=== PATIENT | male | born 1990 | race Caucasian/White ===

== ENCOUNTER 2017-05-18 12:36 | Emergency (ER) | payer BC, OTHER ==
[2017-05-18] MEDS ORDERED: XYLOCAINE 1% HCL 20 ML MDV IJ ONE (13:08)
[2017-05-18] MEDS ORDERED: BACIGUENT PACKET TP ONE (13:08)
--- NOTE | 2017-05-18 13:08 | ERPHSYRPT ---
- History of Present Illness Time Seen by Provider: 05/18/17 13:00 Source: patient Exam Limitations: no limitations Patient Subjective Stated Complaint: pt states he was trying to get a door undone and door struck the right side of his face. pt c/o laceration to right side face. Triage Nursing Assessment: pt pink, warm, dry. 4cm laceration to right face. bleeding controlled. Physician History: 26-year-old white male arrives with complaint of laceration on right side of face overlying zygoma and just prior to arrival. Patient states he lacerated his face on the sharp part of the door he was trying to open he denies any loss of consciousness denies any other problems. Past medical history negative. Past surgical history tonsils and adenoidectomy. Patient states his tetanus is up-to-date he believes he got a tetanus shot a year ago Timing/Duration: today Severity: mild Modifying Factors: Improves With: nothing Associated Symptoms: other (4 cm laceration face), No nausea, No vomiting, No abdominal pain, No shortness of breath, No heartburn, No diaphoresis, No cough, No chills, No chest pain, No fever, No headaches, No loss of appetite, No malaise, No rash, No syncope, No seizure, No weakness Allergies/Adverse Reactions: No Known Drug Allergies Allergy (Unverified 05/18/17 12:55) Hx Tetanus, Diphtheria Vaccination/Date Given: Yes (up to date) Hx Influenza Vaccination/Date Given: No Hx Pneumococcal Vaccination/Date Given: No Immunizations Up to Date: Yes - Review of Systems Constitutional: No Fever, No Chills Eyes: No Symptoms Ears, Nose, & Throat: No Symptoms Respiratory: No Cough, No Dyspnea Cardiac: No Chest Pain, No Edema, No Syncope Abdominal/Gastrointestinal: No Abdominal Pain, No Nausea, No Vomiting, No Diarrhea Genitourinary Symptoms: No Dysuria Musculoskeletal: No Back Pain, No Neck Pain Skin: Other (4 cm laceration to the face) Neurological: No Dizziness, No Focal Weakness, No Sensory Changes Psychological: No Symptoms Endocrine: No Symptoms All Other Systems: Reviewed and Negative - Past Medical History Pertinent Past Medical History: No - Past Surgical History Past Surgical History: Yes Other Surgical History: t & a - Social History Smoking Status: Light tobacco smoker Exposure to second hand smoke: Yes Drug Use: none Patient Lives Alone: No - Nursing Vital Signs Nursing Vital Signs: Initial Vital Signs Pulse Rate 87 05/18/17 12:51 Respiratory Rate 18 05/18/17 12:51 Blood Pressure 129/84 05/18/17 12:51 O2 Sat by Pulse Oximetry 97 05/18/17 12:51 Pain Scale Pain Intensity 2 - Physical Exam General Appearance: no apparent distress, alert, other (face with 4 cm laceration overlying zygoma on the right) Eye Exam: PERRL/EOMI, eyes nml inspection Ears, Nose, Throat Exam: normal ENT inspection, TMs normal, pharynx normal, moist mucous membranes Neck Exam: normal inspection, non-tender, supple, full range of motion Respiratory Exam: normal breath sounds, lungs clear, No respiratory distress Cardiovascular Exam: regular rate/rhythm, normal heart sounds, normal peripheral pulses Gastrointestinal/Abdomen Exam: soft, normal bowel sounds, No tenderness, No mass Back Exam: normal inspection, normal range of motion, No CVA tenderness, No vertebral tenderness Extremity Exam: normal inspection, normal range of motion, pelvis stable Neurologic Exam: alert, oriented x 3, cooperative, plant maintenance technician II-XII nml as tested, normal mood/affect, nml cerebellar function, nml station & gait, sensation nml, No motor deficits Skin Exam: warm, laceration (4 cm laceration overlying zygoma on the right ), No rash, No petechiae, No jaundice, No abrasion, No cyanosis, No diaphoresis, No decubitus, No embolic lesions SpO2 Interpretation: normal (97%) SpO2: 97 Oxygen Delivery: Room Air - Course Nursing assessment & vital signs reviewed: Yes Ordered Tests: Active Orders 24 hr Category Date Time Status Prepare for Sutures STAT Care 05/18/17 13:08 Active Sutures STAT Care 05/18/17 13:08 Active Wound Care STAT Care 05/18/17 13:08 Active Medication Summary Discontinued Medications Generic Name Dose Route Start Last Admin Trade Name Freq PRN Reason Stop Dose Admin Bacitracin 0.9 gm 05/18/17 13:08 Baciguent Packet TP 05/18/17 13:09 STAT ONE Bacitracin Confirm 05/18/17 13:16 Baciguent Packet Administered 05/18/17 13:17 Dose 1 gm .ROUTE .STK-MED ONE Lidocaine HCl 5 ml 05/18/17 13:08 Xylocaine 1% Hcl 20 Ml Mdv IJ 05/18/17 13:09 STAT ONE Lidocaine HCl Confirm 05/18/17 13:15 Xylocaine 1% Hcl 20 Ml Mdv Administered 05/18/17 13:16 Dose 5 ml .ROUTE .STK-MED ONE - Progress Progress: improved Progress Note: 05/18/17 13:38 Laceration repair. 4 cm laceration face. Laceration sterilely prepped and draped. Anesthetized with 1% lidocaine. Laceration closed using 7 5. 0 Prolene sutures. Bacitracin was applied. - Departure Time of Disposition: 13:38 Departure Disposition: Home Clinical Impression: Facial laceration Qualifiers: Encounter type: initial encounter Qualified Code(s): S01.81XA - Laceration without foreign body of other part of head, initial encounter Condition: Fair Critical Care Time: No Referrals: DOCTOR,NO FAMILY [Primary Care Provider] - Instructions: Laceration Repair With Stitches (DC) Additional Instructions: Keep area clean and dry. Bacitracin to area until healed. Do not applly traction to area. Sutures out in 5 days. Follow-up with your family doctor or return if problems or signs of infection. Return for acute distress or for severe symptoms.
[2017-05-18] MEDS ORDERED: XYLOCAINE 1% HCL 20 ML MDV ONE (13:15)
[2017-05-18] MEDS ORDERED: BACIGUENT PACKET ONE (13:16)
[2017-05-18 13:50] VITALS: BP 131/68; PULSE 90; O2SAT 99
== END 2017-05-18 13:49 | disposition home or self-care (01) ==
LOC: ED 12:36
PROC: 0HQ1XZZ Repair Face Skin, External Approach (ICD-10-PCS; principal; 2017-05-18)
DX: S01.81XA Laceration without foreign body of other part of head, initial encounter (principal); W22.8XXA Striking against or struck by other objects, initial encounter
CPT/HCPCS: 12013; 99283; A9270-GY

== ENCOUNTER 2020-10-18 18:08 | Emergency (ER) | payer BC, OTHER ==
--- NOTE | 2020-10-18 18:45 | ERPHSYRPT ---
- History of Present Illness Time Seen by Provider: 10/18/20 18:25 Source: patient Exam Limitations: no limitations Patient Subjective Stated Complaint: Pt states "I was working on a car and the gilles gave way and the tire and trailer smashed my index and middle fingers." Triage Nursing Assessment: Pt presented alert and oriented X 3, skin pwd. pt ambulates with an upright steady gait, able to speak in clear full sentences pt in no apparent respiratory distress. Pt index and middle finger has small laceration noted to distal knuckle, csm X 4 throughout. Physician History: Patient is a 29-year-old male who was working on a trailer and gilles when the gilles slipped pinning his left middle and index finger beneath the trailer tongue. He was able to free himself and did not want to come to the ER because he could move it and he had good feeling he does have some abrasions to the digits but came to the ER at the insistence of his mother. Occurred: just prior to arrival Method of Injury: direct blow Quality: aching Severity of Pain-Max: moderate Severity of Pain-Current: moderate Extremities Pain Location: 2nd finger: left, 3rd finger: left Modifying Factors: Improves With: nothing Allergies/Adverse Reactions: No Known Drug Allergies Allergy (Verified 10/18/20 18:19) Hx Tetanus, Diphtheria Vaccination/Date Given: Yes Hx Influenza Vaccination/Date Given: No Hx Pneumococcal Vaccination/Date Given: No Immunizations Up to Date: Yes Travel Risk - International Travel Have you traveled outside of the country in past 3 weeks: No - Coronavirus Screening Are you exhibiting any of the following symptoms?: No Close contact with a COVID-19 positive Pt in past 14-21 Days: No - Vaccine Status Have you recieved a Covid-19 vaccination: No - Review of Systems Constitutional: No Fever, No Chills Eyes: No Symptoms Ears, Nose, & Throat: No Symptoms Respiratory: No Cough, No Dyspnea Cardiac: No Chest Pain, No Edema, No Syncope Abdominal/Gastrointestinal: No Abdominal Pain, No Nausea, No Vomiting, No Diarrhea Genitourinary Symptoms: No Dysuria Musculoskeletal: No Back Pain, No Neck Pain Skin: No Rash Neurological: No Dizziness, No Focal Weakness, No Sensory Changes Psychological: No Symptoms Endocrine: No Symptoms All Other Systems: Reviewed and Negative - Past Medical History Pertinent Past Medical History: No - Past Surgical History Past Surgical History: Yes Other Surgical History: t & a - Social History Smoking Status: Current every day smoker How long have you smoked: 4 years Exposure to second hand smoke: Yes Drug Use: none Patient Lives Alone: No - Nursing Vital Signs Nursing Vital Signs: Initial Vital Signs Temperature 97.6 F 10/18/20 18:13 Pulse Rate 90 10/18/20 18:13 Respiratory Rate 20 10/18/20 18:13 Blood Pressure 131/78 10/18/20 18:13 O2 Sat by Pulse Oximetry 97 10/18/20 18:13 Pain Scale Pain Intensity 2 - Physical Exam General Appearance: mild distress, alert Eyes, Ears, Nose, Throat Exam: normal ENT inspection Neck Exam: normal inspection, non-tender, supple, full range of motion Cardiovascular/Respiratory Exam: no respiratory distress, No subcutaneous emphysema Back Exam: normal inspection Shoulder Exam: normal inspection, non-tender Elbow/Forearm Exam: normal inspection, non-tender Wrist Exam: normal inspection, non-tender Hand Exam: normal ROM, abrasions (Revisions to the DIP joint of both the middle and index finger on the left) Neuro/Tendon Exam: normal sensation, normal motor functions Mental Status Exam: alert, oriented x 3 Skin Exam: normal color, warm, dry SpO2 Interpretation: normal SpO2: 97 O2 Delivery: Room Air - Course Nursing assessment & vital signs reviewed: Yes - Radiology Exams Hand X-ray Interpretation: Interpreted by me, Negative Ordered Tests: Active Orders 24 hr Category Date Time Status HAND (MINIMUM 3 VIEWS) Stat Exams 10/18/20 18:17 Taken - Progress Progress: unchanged - Departure Departure Disposition: Home Clinical Impression: Crush injury to finger Qualifiers: Encounter type: initial encounter Qualified Code(s): S67.10XA - Crushing injury of unspecified finger(s), initial encounter Condition: Stable Critical Care Time: No Referrals: DOCTOR,NO FAMILY [Primary Care Provider] - Instructions: Hand Pain (DC) Prescriptions: Cephalexin Mh 500 mg [Keflex 500 mg] 500 mg PO TID #21 capsule
[2020-10-18] MEDS ORDERED: BACIGUENT PACKET TP ONE (19:31)
[2020-10-18] MEDS ORDERED: BACIGUENT PACKET ONE (19:32)
[2020-10-18 19:40] VITALS: BP 141/82; PULSE 76; O2SAT 99
--- NOTE | 2020-10-19 08:59 | XRAY ---
Indication: Pain following injury. Comparison: None 3 view left hand demonstrates 3 mm foreign body overlying 1st MCP. No other bony, articular, or soft tissue abnormalities.
== END 2020-10-18 19:38 | disposition home or self-care (01) ==
LOC: ED 18:08
DX: S67.10XA Crushing injury of unspecified finger(s), initial encounter (principal); W24.0XXA Contact with lifting devices, not elsewhere classified, initial encounter; Y93.89 Activity, other specified; Y92.89 Other specified places as the place of occurrence of the external cause; Y99.0 Civilian activity done for income or pay
CPT/HCPCS: 73130; 99283; A9270-GY

== ENCOUNTER 2023-02-10 01:35 | Emergency (ER) | payer BC ==
[2023-02-10 01:39] VITALS: TEMP 97.9
[2023-02-10] MEDS ORDERED: solu-MEDROL 125 MG, Sterile H2O 10 ml 2 ML IV ONE ×2 (02:11)
[2023-02-10] MEDS ORDERED: solu-MEDROL ONE (02:16)
[2023-02-10] MEDS ORDERED: Sterile H2O 10 ml IJ ONE (02:16)
[2023-02-10] MEDS ORDERED: Zofran 4 MG/2 ML VIAL IV ONE (02:29)
[2023-02-10] MEDS ORDERED: Zofran 4 MG/2 ML VIAL ONE (02:31)
--- NOTE | 2023-02-10 02:32 | ERPHSYRPT ---
- History of Present Illness Time Seen by Provider: 02/10/23 01:50 Source: patient, family Exam Limitations: no limitations Patient Subjective Stated Complaint: pt states that for the last couple of days he has had a dry nonproductive cough and sinus drainage then last night around 2129 he while at rest he started having intermittent dull ache chest pain in center of his chest (nonradiating) and intermittent SOB. he also reports he has intermittently had "warm sensation" like being dizzy for the last couple of hours. he reports that he threw up one time prior to coming to the ED. Triage Nursing Assessment: pt ambulated into room 5 independently with slow steady gait. pt is alert and oriented times three, able to speak in complete sentences, able to move all extremities, and with resp even and unlabored without the use of accessory muscles. pt denies n/v, sob, difficulty breathing, dizziness, lightheadedness at this time. heart sounds present and regular. bilat anterior/ posterior clear and diminished throughout. bilat radial and pedal pulses palpable. no edema noted. no jvd noted. skin warm, dry, and intact. Physician History: This is a morbidly obese 32-year-old white male patient who has no family do ctor, takes no medications chronically and has known drug allergies and presents to the emergency department with 2 to 3-day history of a nonproductive cough, nasal congestion and shortness of breath. This past evening he was having intermittent dull ache that was nonradiating and it was in the substernal and central chest. He vomited once prior to arrival. There is no known exposure to individuals with similar symptoms. Patient is a daily smoker of tobacco Timing/Duration: day(s) (Last 2 to 3 days), worse Activities at Onset: none Severity of Dyspnea-Max: mild Severity of Dyspnea-Current: mild Possible Cause: no prior episodes Modifying Factors: Improves With: coughing Associated Symptoms: cough, chest pain/discomfort (Scribed as a nonradiating central substernal ache) Allergies/Adverse Reactions: No Known Drug Allergies Allergy (Verified 10/18/20 18:19) Hx Tetanus, Diphtheria Vaccination/Date Given: Yes Hx Influenza Vaccination/Date Given: No Hx Pneumococcal Vaccination/Date Given: No Immunizations Up to Date: Yes Travel Risk - International Travel Have you traveled outside of the country in past 3 weeks: No - Coronavirus Screening Are you exhibiting any of the following symptoms?: No Close contact with a COVID-19 positive Pt in past 14-21 Days: No - Vaccine Status Have you recieved a Covid-19 vaccination: No - Review of Systems Constitutional: No Symptoms Eyes: No Symptoms Ears, Nose, & Throat: No Symptoms Respiratory: Cough, Dyspnea Cardiac: Chest Pain (Nonradiating, substernal, central ache) Abdominal/Gastrointestinal: Nausea, Vomiting (X1), No Abdominal Pain, No Diarrhea, No Constipation Genitourinary Symptoms: No Symptoms Musculoskeletal: No Symptoms Skin: No Symptoms Neurological: Dizziness (Resolved prior to arrival) Psychological: No Symptoms Endocrine: No Symptoms Hematologic/Lymphatic: No Symptoms Immunological/Allergic: No Symptoms All Other Systems: Reviewed and Negative - Past Medical History Pertinent Past Medical History: No Neurological History: No Pertinent History ENT History: No Pertinent History Cardiac History: No Pertinent History Respiratory History: No Pertinent History Endocrine Medical History: No Pertinent History Musculoskeletal History: No Pertinent History GI Medical History: No Pertinent History History: No Pertinent History Psycho-Social History: No Pertinent History Male Reproductive Disorders: No Pertinent History - Past Surgical History Past Surgical History: Yes Neuro Surgical History: No Pertinent History Cardiac: No Pertinent History Respiratory: No Pertinent History Gastrointestinal: No Pertinent History Genitourinary: No Pertinent History Musculoskeletal: No Pertinent History Male Surgical History: No Pertinent History Other Surgical History: t & a - Social History Smoking Status: Current every day smoker How long have you smoked: 4 years Exposure to second hand smoke: Yes Drug Use: none Patient Lives Alone: No - Nursing Vital Signs Nursing Vital Signs: Initial Vital Signs Temperature 97.9 F 02/10/23 01:36 Pulse Rate 98 H 02/10/23 01:36 Respiratory Rate 20 02/10/23 01:36 Blood Pressure 106/71 02/10/23 01:36 O2 Sat by Pulse Oximetry 99 02/10/23 01:36 Pain Scale Pain Intensity 2 - Physical Exam General Appearance: no apparent distress, alert, anxiety, obese Eye Exam: PERRL/EOMI, eyes nml inspection Ears, Nose, Throat Exam: hearing grossly normal, normal ENT inspection, normal pharynx Neck Exam: normal inspection, non-tender, supple, full range of motion Respiratory Exam: normal breath sounds, chest tenderness (Nonradiating, substernal ache), lungs clear, airway intact, No respiratory distress Cardiovascular/Chest Exam: normal heart sounds, regular rate/rhythm Abdominal/Gastrointestinal Exam: soft, normal bowel sounds, No tenderness Rectal Exam: not done Extremity Exam: non-tender, normal range of motion, normal inspection, normal capillary refill, no calf tenderness, no pedal edema, pelvis stable Neurologic Exam: alert, oriented x 3, cooperative, fisher purse seine II-XII nml as tested, normal mood/affect, nml cerebellar function, nml station & gait, sensation nml Skin Exam: normal color, warm, dry Lymphatic Exam: No adenopathy SpO2 Interpretation: normal SpO2: 99 O2 Delivery: Room Air - Course Nursing assessment & vital signs reviewed: Yes EKG Interpreted by Me: RATE (90), Sinus Rhythm, NORMAL AXIS, NORMAL INTERVALS, NORMAL QRS, Other (No acute ischemic changes on today's twelve-lead EKG) Ordered Tests: Active Orders 24 hr Category Date Time Status IV Insertion STAT Care 02/10/23 02:11 Active Pulse Oximetry (ED) STAT Care 02/10/23 02:11 Active CHEST 1 VIEW (PORTABLE) Stat Exams 02/10/23 02:12 Ordered BLOOD CULTURE Stat Lab 02/10/23 02:40 Received CBC W DIFF Stat Lab 02/10/23 02:04 Completed CMP Stat Lab 02/10/23 02:04 Completed D-DIMER QUANTITATIVE Stat Lab 02/10/23 02:04 Received NT PRO BNPII Stat Lab 02/10/23 02:04 Completed TROPONIN Q4H Lab 02/10/23 02:04 Completed TROPONIN Q4H Lab 02/10/23 06:15 Ordered TROPONIN Q4H Lab 02/10/23 10:15 Ordered Medication Summary Generic Name Dose Route Start Last Admin Trade Name Freq PRN Reason Stop Dose Admin Ceftriaxone Sodium/Dextrose 1 g in 50 mls @ 100 mls/hr 02/10/23 04:05 Rocephin 1 Gm-D5w 50 Ml Bag IV 02/10/23 04:34 STAT STA Discontinued Medications Generic Name Dose Route Start Last Admin Trade Name Freq PRN Reason Stop Dose Admin Methylprednisolone Sodium 0 mg 02/10/23 02:11 02/10/23 02:19 Succinate 125 mg/ Sterile IV 02/10/23 02:12 125 mg Water 2 ml STAT ONE Administration Methylprednisolone Sodium Succinate Confirm 02/10/23 02:16 Methylprednis Sod Succ 125 Mg/2 Ml Vial Administered 02/10/23 02:17 Dose 125 mg .ROUTE .STK-MED ONE Ondansetron HCl 4 mg 02/10/23 02:29 02/10/23 02:32 Ondansetron Hcl 4 Mg/2 Ml Vial IV 02/10/23 02:30 4 mg STAT ONE Administration Ondansetron HCl Confirm 02/10/23 02:31 Ondansetron Hcl 4 Mg/2 Ml Vial Administered 02/10/23 02:32 Dose 4 mg .ROUTE .STK-MED ONE Sterile Water Confirm 02/10/23 02:16 Water For Injection,Sterile 10 Ml Vial Administered 02/10/23 02:17 Dose 10 ml IJ .STK-MED ONE Lab/Rad Data: Laboratory Result Diagrams 02/10/23 02:04 02/10/23 02:04 Laboratory Results 02/10/23 02/10/23 02/10/23 Range/Units 02:40 02:04 02:04 WBC (4.0-10.5) x10^3/uL RBC (4.1-5.6) x10^6/uL Hgb (12.5-18.0) g/dL Hct (42-50) % MCV (78-100) fL MCH (26-32) pg MCHC (32-36) g/dL RDW (11.5-14.0) % Plt Count (150-450) x10^3/uL MPV (7.5-11.0) fL Gran % (36.0-66.0) % Immature Gran % (Auto) (0.00-0.4) % Nucleat RBC Rel Count (0.00-0.1) % Eos # (Auto) (0-0.5) x10^3/uL Immature Gran # (Auto) (0.00-0.03) x10^3u/L Absolute Lymphs (auto) (1.0-4.6) x10^3/uL Absolute Monos (auto) (0.0-1.3) x10^3/uL Absolute Nucleated RBC (0.00-0.01) x10^3u/L Lymphocytes % (24.0-44.0) % Monocytes % (0.0-12.0) % Eosinophils % (0.00-5.0) % Basophils % (0.0-0.4) % Absolute Granulocytes (1.4-6.9) x10^3/uL Basophils # (0-0.4) x10^3/uL Sodium 136 L (137-145) mmol/L Potassium 3.7 (3.5-5.1) mmol/L Chloride 101 (98-107) mmol/L Carbon Dioxide 28 (22-30) mmol/L Anion Gap 9.8 (5-15) MEQ/L BUN 15 (9-20) mg/dL Creatinine 1.22 (0.66-1.25) mg/dL Estimated GFR > 60.0 ML/MIN Glucose 98 (74-106) mg/dL Calcium 8.8 (8.4-10.2) mg/dL Total Bilirubin 0.60 (0.2-1.3) mg/dL AST 35 (17-59) U/L ALT 36 (0-50) U/L Alkaline Phosphatase 179 H (38-126) U/L Troponin I < 0.012 (0.000-0.034) ng/mL NT-Pro-B Natriuret Pep 39.4 (<300) pg/mL Serum Total Protein 7.6 (6.3-8.2) g/dL Albumin 4.1 (3.5-5.0) g/dL Influenza Type A Ag NEGATIVE (NEGATIVE) Influenza Type B Ag NEGATIVE (NEGATIVE) RSV (PCR) NEGATIVE (NEGATIVE) SARS-CoV-2 (PCR) POSITIVE A (NEGATIVE) 02/10/23 Range/Units 02:04 WBC 8.0 (4.0-10.5) x10^3/uL RBC 4.75 (4.1-5.6) x10^6/uL Hgb 13.1 (12.5-18.0) g/dL Hct 39.9 L (42-50) % MCV 84.0 (78-100) fL MCH 27.6 (26-32) pg MCHC 32.8 (32-36) g/dL RDW 13.2 (11.5-14.0) % Plt Count 200 (150-450) x10^3/uL MPV 10.6 (7.5-11.0) fL Gran % 55.5 (36.0-66.0) % Immature Gran % (Auto) 0.2 (0.00-0.4) % Nucleat RBC Rel Count 0.0 (0.00-0.1) % Eos # (Auto) 0.25 (0-0.5) x10^3/uL Immature Gran # (Auto) 0.02 (0.00-0.03) x10^3u/L Absolute Lymphs (auto) 2.03 (1.0-4.6) x10^3/uL Absolute Monos (auto) 1.23 (0.0-1.3) x10^3/uL Absolute Nucleated RBC 0.00 (0.00-0.01) x10^3u/L Lymphocytes % 25.3 (24.0-44.0) % Monocytes % 15.4 H (0.0-12.0) % Eosinophils % 3.1 (0.00-5.0) % Basophils % 0.5 (0.0-0.4) % Absolute Granulocytes 4.44 (1.4-6.9) x10^3/uL Basophils # 0.04 (0-0.4) x10^3/uL Sodium (137-145) mmol/L Potassium (3.5-5.1) mmol/L Chloride (98-107) mmol/L Carbon Dioxide (22-30) mmol/L Anion Gap (5-15) MEQ/L BUN (9-20) mg/dL Creatinine (0.66-1.25) mg/dL Estimated GFR ML/MIN Glucose (74-106) mg/dL Calcium (8.4-10.2) mg/dL Total Bilirubin (0.2-1.3) mg/dL AST (17-59) U/L ALT (0-50) U/L Alkaline Phosphatase (38-126) U/L Troponin I (0.000-0.034) ng/mL NT-Pro-B Natriuret Pep (<300) pg/mL Serum Total Protein (6.3-8.2) g/dL Albumin (3.5-5.0) g/dL Influenza Type A Ag (NEGATIVE) Influenza Type B Ag (NEGATIVE) RSV (PCR) (NEGATIVE) SARS-CoV-2 (PCR) (NEGATIVE) - Progress Progress: improved, re-examined Air Movement: good Progress Note: 02/10/23 02:34 This patient's medical issue is 1 of moderate complexity. Level of complexity in the work-up performed based on review of the patient's past medical history, review of the patient's medication list, review the patient's drug allergy list, history of present illness and physical findings on examination. The work-up in this patient includes placement of intravenous line, twelve-lead EKG, CBC, CMP, D-dimer, troponin level, BNP, chest x-ray and flu swabs. 02/10/23 04:06 Laboratory work-up was reviewed and interpreted by me. The patient is diagnosed with COVID-19 infection. Chest x-ray was interpreted by me. Patient has bibasilar groundglass opacities. Blood Culture(s) Obtained: Yes Counseled pt/family regarding: lab results, diagnosis, rad results Medical Desision Making - Independent Historian Additional History obtained from: Mother - Diagnostic Testing Diagnostic test were ordered, analyzed, and reviewed by me: Yes Radiological Interpretation: Interpreted by me - Risk of complications The pt has a mod risk of morbidity or mortality based on: Need for prescription drug management - Departure Departure Disposition: Home Clinical Impression: COVID-19 virus infection, Ground glass opacity present on imaging of lung Condition: Stable Critical Care Time: No Referrals: DOCTOR,NO FAMILY [Primary Care Provider] - Follow up/PCP as directed Additional Instructions: Drink plenty of fluids. Avoid exposure to any type of smoke. Take your antibiotics, cough medicine and steroids as prescribed. Quarantine yourself for 7 days or follow the COVID quarantine policy at your place of employment. Prescriptions: Prednisone 10 mg [Deltasone 10 mg] 10 mg PO TID #12 tablet Hydrocodone/Acetaminophen [Hydrocodone-Acetamn 7.5-325/15] 10 ml PO Q8H PRN #120 ml MDD 30 ml PRN Reason: Cough Azithromycin 250 mg [Zithromax 250 MG TABLET] 250 mg PO ZPACK #6 tablet
[2023-02-10 02:51] LABS: Absolute Neutrophil Ct (ANC) 4.44 x10^3/uL (1.4-6.9); BASOPHIL % 0.5 % (0.0-0.4); Basophil (Absolute #) 0.04 x10^3/uL (0-0.4); Eosinophil % 3.1 % (0.00-5.0); Eosinophil (Absolute #) 0.25 x10^3/uL (0-0.5); Hematocrit 39.9 % (42-50); Hemoglobin 13.1 g/dL (12.5-18.0); IMMATURE GRAN # 0.02 x10^3u/L (0.00-0.03); IMMATURE GRAN % 0.2 % (0.00-0.4); Lymphocyte (Absolute #) 2.03 x10^3/uL (1.0-4.6); Lymphocytes % 25.3 % (24.0-44.0); Mean Corpuscular Hemoglobin 27.6 pg (26-32); Mean Corpuscular Hgb Concent. 32.8 g/dL (32-36); Mean Platelet Volume 10.6 fL (7.5-11.0); Monocyte (Absolute #) 1.23 x10^3/uL (0.0-1.3); Monocytes % 15.4 % (0.0-12.0); Neutrophil % 55.5 % (36.0-66.0); Platelet Count 200 x10^3/uL (150-450); Red Blood Count 4.75 x10^6/uL (4.1-5.6); Red Cell Distribution Width 13.2 % (11.5-14.0)
[2023-02-10 03:06] LABS: ALBUMIN 4.1 g/dL (3.5-5.0); ALKALINE PHOSPHATASE 179 U/L (38-126); ANION GAP 9.8 MEQ/L (5-15); BLOOD UREA NITROGEN 15 mg/dL (9-20); CHLORIDE 101 mmol/L (98-107); Calcium 8.8 mg/dL (8.4-10.2); Carbon Dioxide 28 mmol/L (22-30); Creatinine 1 1.22 mg/dL (0.66-1.25); EST GLOMERULAR FILTRATION RATE > 60.0 ML/MIN; Glucose 98 mg/dL (74-106); Potassium 3.7 mmol/L (3.5-5.1); SGOT/AST 35 U/L (17-59); SGPT/ALT 36 U/L (0-50); SODIUM 136 mmol/L (137-145); Total Protein 7.6 g/dL (6.3-8.2)
[2023-02-10 03:17] LABS: NT PRO BNPII 39.4 pg/mL (<300); TROPONIN < 0.012 ng/mL (0.000-0.034)
[2023-02-10 03:32] LABS: INFLUENZA A NEGATIVE (NEGATIVE); INFLUENZA B NEGATIVE (NEGATIVE); RESPIRATORY SYNCTIAL VIRUS NEGATIVE (NEGATIVE)
[2023-02-10 03:59] LABS: SARS-CoV-2 Xpert Express POSITIVE (NEGATIVE)
[2023-02-10] MEDS ORDERED: ROCEPHIN 1 Gm-D5w 50 ml Bag** 1 G/50 ML IVPB IV STA (04:05)
[2023-02-10] MEDS ORDERED: HYDROCODONE-ACETAMIN 2.5-108/5 ML SOLUTION PO STA (04:06)
[2023-02-10] MEDS ORDERED: ROCEPHIN 1 Gm-D5w 50 ml Bag** 1 G/50 ML IVPB IV ONE (04:11)
[2023-02-10] MEDS ORDERED: HYDROCODONE-ACETAMIN 2.5-108/5 ML SOLUTION ONE (04:11)
[2023-02-10 04:15] VITALS: PULSE 85; RESP 19; O2SAT 97
[2023-02-10 05:12] VITALS: BP 128/79
--- NOTE | 2023-02-10 08:17 | XRAY ---
Indication: Cough, nasal congestion, short of breath. Comparison: None Portable chest inflated and clear with a few incidental tiny calcified granulomas. Heart not enlarged. Bony thorax intact.
== END 2023-02-10 05:25 | disposition home or self-care (01) ==
LOC: ED 01:35
DX: U07.1 COVID-19 (principal); R91.8 Other nonspecific abnormal finding of lung field; R05.1 Acute cough; R06.02 Shortness of breath; R07.9 Chest pain, unspecified; Z28.310 Unvaccinated for COVID-19; Z72.0 Tobacco use; Z79.891 Long term (current) use of opiate analgesic; Z79.52 Long term (current) use of systemic steroids
CPT/HCPCS: 0241U; 36000; 36415; 71045; 80053; 83880; 84484; 85025; 85379; 87040; 93041; 94760; 96365; 96374; 96375; 99284; J0696; J2405; J2930; A9270-GY